=== PATIENT | female | born 1985 | race Caucasian/White ===

== ENCOUNTER 2017-01-08 19:47 | Emergency (ER) | payer BC, OTHER ==
[2017-01-08 20:57] VITALS: BP 140/73
[2017-01-08] MEDS ORDERED: Azithromycin TAB* 250 MG PO ONE (21:13)
[2017-01-08] MEDS ORDERED: Albuterol HFA INHALER* 8 gm MDI INH ONE (21:13)
--- NOTE | 2017-01-08 21:13 | UC ---
Respiratory Complaint HPI - HPI Summary HPI Summary: 2 days of cough and chills - History of Current Complaint Chief Complaint: UCRespiratory Stated Complaint: HEAD COLD,CHILLS AND BODY ACHES Time Seen by Provider: 01/08/17 20:52 Hx Obtained From: Patient Hx Last Menstrual Period: 12/24/16 ?: No Onset/Duration: Sudden Onset, Lasting Days - 2 Timing: Constant Severity Currently: Mild Pain Intensity: 3 Pain Scale Used: 0-10 Numeric Character: Cough: Nonproductive Associated Signs And Symptoms: Positive: Chills, URI - Allergies/Home Medications Allergies/Adverse Reactions: Allergies Allergy/AdvReac Type Severity Reaction Status Date / Time No Known Allergies Allergy Verified 01/08/17 20:57 PMH/Surg Hx/FS Hx/Imm Hx Previously Healthy: No Endocrine History Of: 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, HAS INSULIN PUMP Denies: Thyroid Disease, Hyperthyroidism, Hypothyroidism, Dyslipidemia Cardiovascular History Of: Denies: Cardiac Disorders, Hypertension, Pacemaker/ICD, Myocardial Infarction , Congestive Heart Failure, Atrial Fibrillation, Deep Vein Thrombosis, Bleeding Disorders Respiratory History Of: Reports: Asthma Denies: COPD, Bronchitis, Pneumonia, Pulmonary Embolism GI/ History Of: Denies: Gastroesophageal Reflux, Ulcer, Gastrointestinal Bleed, Gall Bladder Disease, Kidney Stones, Diverticulitis, Renal Disease, Urosepsis Neurological History Of: Denies: TIA, CVA, Dementia, Seizures, Migraine Psychological History Of: Denies: Anxiety, Depression, Bipolar Disorder, Schizophrenia, Post Traumatic Stress Disorder Cancer History Of: Denies: Lung Cancer, Colorectal Cancer, Breast Cancer, Prostate Cancer, Cervical Cancer Other History Of: Negative For: HIV, Hepatitis B, Hepatitis C, Anticoagulant Therapy - Surgical History Surgical History: None - Family History Known Family History: Positive: Diabetes Negative: Cardiac Disease, Hypertension, Renal Disease - Social History Occupation: Employed Full-time Lives: With Family Alcohol Use: Occasionally Substance Use Type: None Smoking Status (MU): Heavy Every Day Tobacco Smoker Type: Cigarettes Amount Used/How Often: 1 ppd Length of Time of Smoking/Using Tobacco: started at age 15 Have You Smoked in the Last Year: Yes Household Exposure Type: Cigarettes Cessation Counseling: Patient Advised to Stop - Immunization History Most Recent Influenza Vaccination: FALL 2013 Review of Systems Constitutional: Chills, Fatigue Skin: Negative Eyes: Negative ENT: Negative Respiratory: Cough Cardiovascular: Negative Gastrointestinal: Negative Genitourinary: Negative Motor: Negative Neurovascular: Negative Musculoskeletal: Negative Neurological: Negative Psychological: Negative All Other Systems Reviewed And Are Negative: Yes Physical Exam Triage Information Reviewed: Yes Appearance: Well-Appearing, No Pain Distress, Well-Nourished Vital Signs: Initial Vital Signs Temp 97.5 F 01/08/17 20:51 Pulse 100 01/08/17 20:51 Resp 16 01/08/17 20:51 BP 140/73 01/08/17 20:51 Pulse Ox 96 01/08/17 20:51 Vital Signs Reviewed: Yes Eye Exam: Normal Eyes: Positive: Conjunctiva Clear ENT Exam: Normal ENT: Positive: Normal ENT inspection, Hearing grossly normal, Pharynx normal. Negative: Nasal congestion, Nasal drainage, TMs normal, Tonsillar swelling, Tonsillar exudate, Trismus, Muffled/hoarse voice Dental Exam: Normal Neck exam: Normal Neck: Positive: Supple, Nontender, No Lymphadenopathy Respiratory Exam: Normal Respiratory: Positive: Chest non-tender, Lungs clear, Normal breath sounds, No respiratory distress, No accessory muscle use Cardiovascular Exam: Normal Cardiovascular: Positive: RRR, No Murmur, Pulses Normal, Brisk Capillary Refill Musculoskeletal Exam: Normal Musculoskeletal: Positive: Strength Intact, ROM Intact, No Edema Neurological Exam: Normal Neurological: Positive: Alert, Muscle Tone Normal Psychological Exam: Normal Skin Exam: Normal UC Diagnostic Evaluation - Laboratory O2 Sat by Pulse Oximetry: 96 Respiratory Course/Dx - Course Course Of Treatment: Albuterol with spacer, antibiodics if symptoms fail to improve or worsen, hypertension follow up and DASH diet suggested - Differential Dx/Diagnosis Differential Diagnosis/HQI/PQRI: Asthma, Bronchitis, Lower Resp Infection, Sinusitis Provider Diagnoses: Acute Bronchitis, Highblood pressure with out Dx of Hypertension,nicotine dependent Discharge - Discharge Plan Condition: Stable Disposition: HOME Prescriptions: Azithromycin TAB* [Zithromax TAB (Z-JOSE ANTONIO) 250 mg #6 tabs] 250 mg PO DAILY #4 tab Benzonatate CAP* [Tessalon 100 MG CAP*] 100 mg PO TID PRN #40 cap PRN Reason: cough Patient Education Materials: How to Stop Smoking (ED), Acute Bronchitis (ED), DASH Eating Plan (ED), Hypertension (ED), Bronchospasm (ED), How to Use a Metered-Dose Inhaler and a Spacer (ED) Referrals: [facility] [place]] - 2 Weeks No Primary Care Phys,NOPCP [Medical Doctor] -
== END 2017-01-08 21:31 | disposition home or self-care (01) ==
LOC: UCCORT 19:47
DX: J20.9 Acute bronchitis, unspecified (principal); R03.0 Elevated blood-pressure reading, without diagnosis of hypertension; E11.9 Type 2 diabetes mellitus without complications; Z96.41 Presence of insulin pump (external) (internal); J45.909 Unspecified asthma, uncomplicated; F17.210 Nicotine dependence, cigarettes, uncomplicated
CPT/HCPCS: 99212; A9270-GY; G0463

== ENCOUNTER 2017-12-02 09:41 | Emergency (ER) | payer SELFPAY ==
[2017-12-02 10:12] VITALS: BP 135/79
--- NOTE | 2017-12-30 17:08 | UC ---
Respiratory Complaint HPI - History of Current Complaint Chief Complaint: UCRespiratory Stated Complaint: COUGH Time Seen by Provider: 12/02/17 10:12 Hx Last Menstrual Period: 11/19/17 Pain Intensity: 0 - Allergies/Home Medications Allergies/Adverse Reactions: Allergies Allergy/AdvReac Type Severity Reaction Status Date / Time No Known Allergies Allergy Verified 12/02/17 10:06 Home Medications: Home Medications Acetaminophen TAB* [Tylenol TAB*] 325 mg PO Q4H PRN 12/02/17 [History Confirmed 12/02/17] Fluticasone NASAL SPRAY 50MCG* [Flonase NASAL SPRAY 50MCG*] 2 spray BOTH NARES DAILY 12/02/17 [History Confirmed 12/02/17] Ibuprofen TAB* [Motrin TAB* 600 MG] 600 mg PO Q6H PRN 12/02/17 [History Confirmed 12/02/17] Multivitamins/Minerals TAB* [Theragran/minerals TAB*] 1 tab PO DAILY 12/02/17 [ History Confirmed 12/02/17] PMH/Surg Hx/FS Hx/Imm Hx Other History Of: Negative For: HIV, Hepatitis B, Hepatitis C, Anticoagulant Therapy - Surgical History Surgical History: None Surgery Procedure, Year, and Place: ear tubes - Family History Known Family History: Positive: Diabetes Negative: Cardiac Disease, Hypertension, Renal Disease - Social History Alcohol Use: Occasionally Substance Use Type: None Smoking Status (MU): Heavy Every Day Tobacco Smoker Type: Cigarettes Amount Used/How Often: 1 ppd Length of Time of Smoking/Using Tobacco: started at age 15 Have You Smoked in the Last Year: Yes Household Exposure Type: Cigarettes - Immunization History Most Recent Influenza Vaccination: FALL 2013 Physical Exam Vital Signs: Initial Vital Signs Temp 98.1 F 12/02/17 09:59 Pulse 92 12/02/17 09:59 Resp 18 12/02/17 09:59 BP 135/79 12/02/17 09:59 Pulse Ox 98 12/02/17 09:59 UC Diagnostic Evaluation - Laboratory O2 Sat by Pulse Oximetry: 98 Discharge - Discharge Plan Condition: Stable Disposition: ELOPEMENT Referrals: Gus SAWANT,Constantino Morgan [Primary Care Provider] - - Billing Disposition and Condition Condition: STABLE Disposition: ELOP
== END 2017-12-02 10:28 | disposition left against medical advice (07) ==
LOC: UCCORT 09:41
DX: R05 Cough (principal)
CPT/HCPCS: 99212; G0463

== ENCOUNTER 2018-12-07 18:41 | Emergency (ER) | payer BC ==
[2018-12-07 19:15] VITALS: BP 114/66
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
[2018-12-07] MEDS ORDERED: Naproxen TAB* 250 MG PO ONE (20:40)
== END 2018-12-07 20:45 | disposition home or self-care (01) ==
LOC: UCCORT 18:41
DX: S20.212A Contusion of left front wall of thorax, initial encounter (principal); F17.210 Nicotine dependence, cigarettes, uncomplicated; Y04.0XXA Assault by unarmed brawl or fight, initial encounter; Y92.9 Unspecified place or not applicable
CPT/HCPCS: 99212; A9270-GY; G0463

== ENCOUNTER 2019-06-07 10:55 | Emergency (ER) | payer BC ==
--- OUTSIDE RECORDS SUMMARY | 2019-06-07 11:14 | XMS REPORT | Summary of Care ---
:1985 Author Organization [facility] Address [address] [place] [address] Care Team Providers Name Role Phone Constantino Weber MD Unavailable Julisa Martinez MD Primary Care Provider Reason for Visit Reason Comments Check Up Encounter Details Date Type Department Care Team Description 05/19/2019 Office Visit [facility] Juan, Attention deficit disorder (ADD) without hyperactivity (Primary Dx); Practice Julisa Blanca MD TASHA (generalized anxiety disorder); [address] Type 1 diabetes mellitus with hyperglycemia, with long-term current use of insulin ([facility]) [place], [place] [id number] [place] [id number] [phone] Allergies Active Allergy Reactions Severity Noted Date Comments No Known Drug Allergy 04/24/2008 documented as of this encounter (statuses as of 05/19/2019) Medications Medication Sig Dispensed Refills Start Date End Date Status Insulin Aspart, RAPID Inject 2 Units 3 Vial 5 08/19/2010 Active - Acting, INJ (INSULIN beneath the skin ASPART) 100 UNIT/ML FOUR TIMES DAILY - Subcutaneous BEFORE MEALS & SolutionIndications: NIGHTLY. Given via Diabetes mellitus type pump as directed I ([facility]) by Dr. Hirsch Additional information Patient taking differently: 2 Units Subcutaneous DIRECTED, Given via pump as directed by Mary snyder, Reported on 04/17/2018 6:32 PM Blood Glucose 1. Brand: One Touch Ultra 150 Strip 5 11/02/2010 Active Monitoring Suppl (BLOOD 2. Dx: Diabetes GLUCOSE TEST STRIPS 3. Insulin dependent STRP)Indications: 4. Test Blood Glucose 8 time(s) A DAY Diabetes mellitus type I (HCC) ibuprofen (MOTRIN) 600 Take 1 Tab by 90 Tab 1 05/11/2017 Active MG Oral TabIndications: mouth EVERY Pain in joint of left EIGHT HOURS shoulder NEEDED for Pain. Multiple Take 2 Each by 0 Active Vitamins-Minerals mouth DAILY. (MULTIVITAMIN GUMMIES WOMENS PO) fluticasone (FLONASE) [place] 2 Sprays 0 Active 50 MCG/ACT Nasal in nose DAILY. Suspension Melatonin 3 MG Oral Cap Take by mouth 0 Active EVERY BEDTIME. Loratadine 10 MG Oral Take 10 mg by 90 Cap 3 04/17/2018 Active CapIndications: mouth DAILY Seasonal allergic NEEDED rhinitis due to pollen (allergy). Cholecalciferol Take 1 Cap by 90 Cap 3 07/24/2018 Active (VITAMIN D3) 2000 units mouth DAILY. Oral CapIndications: Vitamin D deficiency cyanocobalamin 500 MCG Take 500 mcg by 0 Active Oral Tab mouth DAILY. Takes 2 Norethindrone, Take 1 Tab by 28 Tab 11 03/13/2019 Active Contraceptive, 0.35 MG mouth DAILY. Oral TabIndications: General counselling and advice on contraception Methylphenidate HCl ER Take 36 mg by 30 Tab 0 05/12/2019 Active 36 MG Oral TABLET SR 24 mouth EVERY HRIndications: MORNING. Max Attention deficit Daily Amount: disorder (ADD) without 36 mg. hyperactivity sertraline (ZOLOFT) 50 Take 1.5 Tabs 45 Tab 5 05/19/2019 Active MG Oral TabIndications: by mouth DAILY. TASHA (generalized anxiety disorder) sertraline (ZOLOFT) 50 Take 1 Tab by 30 Tab 3 04/15/201905/19/ Discontinued MG Oral TabIndications: mouth DAILY. 2019 (Dose Adjustment) TASHA (generalized 1/2 tab daily x anxiety disorder) 1 week, then go up to a full tablet daily sertraline (ZOLOFT) 50 Take 1.5 Tabs 30 Tab 5 05/19/201905/19/ Discontinued MG Oral TabIndications: by mouth DAILY. 2019 (Reorder) TASHA (generalized 1/2 tab daily x anxiety disorder) 1 week, then go up to a full tablet daily documented as of this encounter (statuses as of 05/19/2019) Active Problems Problem Noted Date Type 1 diabetes mellitus with hyperglycemia, with long-term current use of insulin Attention deficit disorder (ADD) without hyperactivity 02/04/2019 Diabetes mellitus type I 04/24/2008 Overview: Followed by Dr. Hirsch. 08/23 changed to [facility] for care. Personal history of tobacco use, presenting hazards to health 04/24/2008 documented as of this encounter (statuses as of 05/19/2019) Immunizations Name Administration Dates Next Due H1N1 Injectable Adult 06/08/2009 Human Papillomavirus 07/06/2008, 04/29/2008 Influenza (IM) Preservative Free 06/18/2018, 04/13/2018, 05/24/2010, 05/09/2009 TDAP Vaccine 03/13/2019, 10/25/2012 Tuberculin Skin Test 12/24/2017 documented as of this encounter Social History Tobacco Use Types Packs/Day Years Used Date Current Every Day Smoker Cigarettes 1 9 Smokeless Tobacco: Never Used Alcohol Use Drinks/Week oz/Week Comments Yes occasionally Sex Assigned at Date Recorded Not on file Job Start Date Occupation Industry Not on file Not on file Not on file Travel History Travel Start Travel End No recent travel history available. documented as of this encounter Last Filed Vital Signs Vital Sign Reading Time Taken Comments Blood Pressure 120/70 05/19/2019 1:07 PM EDT Pulse 87 05/19/2019 1:07 PM EDT Temperature - - Respiratory Rate - - Oxygen Saturation 98% 05/19/2019 1:07 PM EDT Inhaled Oxygen Concentration - - Weight 59 kg (130 lb) 05/19/2019 1:07 PM EDT Height 153.7 cm (5' 0.5") 05/19/2019 1:07 PM EDT Body Mass Index 24.97 05/19/2019 1:07 PM EDT documented in this encounter Patient Instructions Patient InstructionsJulisa Martinez MD - 05/19/2019 1:00 PM EDTGlad you are feeling better. Increase your sertraline to 75 mg (1.5 tabs) daily. Continue your current methylphenidate dose. Call when you need a methylphenidate refill. documented in this encounter Progress Notes Julisa Martinez MD - 05/19/2019 1:00 PM EDT Nursing Notes: Greer Rosas LPN 05/19/2019 1:14 PM Signed Chief Complaint Patient presents with Check Up Chief Complaint: Nisa Moore is a 33-y.o. female who presents for anxiety and ADD recheck. History of Present Illness/ROS: Here for follow up of anxiety, ADD. Plan last visit: patient has generalized anxiety. We spent a long time discussing treatment options last visit. She agreed to try an SSRI, has beenon sertraline in the past. Risk, benefits, side effects discussed. Continue Concerta for ADD but can take drug holiday days. ADD/Anxiety: She is very happy with her sertraline that we started last visit. Has nausea if she takes it without eating. She takes it at night. She thinks it could go Higher Side effects: nausea and headache initially. She wonders if she needs a higher dose of methylphenidate, but wants to wait as she gets used to sertraline. Her prior Adderall was too much,felt poorly on it.. Insurance did not allow Vyvanse. She took ritalin as a teen, wanted to try this or similar last visit. We opted to try Concerta in December. She thinks it helps, but still moves too much, fidgets. Still has low motivation. She still feels no significant changes on her Concerta. 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 She is still very anxious. She is not sure it is from Concerta. She is sleeping at night. She has a lot of ruminating thoughts. She dreads being on more medications, but is willing to try for a while. She and her ex-boyfriend tried again but he left again at the end of February. Says she had ADD as a child. Was on Wellbutrin XL, zoloft, adderall, ritalin as a child. No adverse reactions in past. Feels overwhelmed x Weeks. Patient complains of depressed mood, psychomotor agitation and feels overwhelmed. She tried therapy, [facility]. She will not be able to see a psychiatrist for a while and copay is $60. 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 She says she has no time for therapy otherwise. Her adopted mom is in her life again so she can talk to her sometimes. Patient denies current suicidal and homicidal plan or intent. Family history significant for unknown, raised in foster care; suspects mother has issues. Possible organic causes contributing are: none. Risk factors: previous episode of depression, had a break up 08/23/18 and it "broke her heart". Previous treatment : As above Patient complains of the following side effects from the treatment: none. Smoking: She stopped cig. And now vapes, nicotene is 5 mg. Warned of dangers of both. Diabetic: followed at [facility] A1C 03/11/19 was 7.7 They checked her thyroid last visit. Has next appointment in June Per last visits: Options for treating depression and anxiety discussed. I agreed with her starting therapy with goal to eventually see the psychiatrist. I started her on Lexapro, however; After two doses of Lexapro she became more anxious so stopped and threw out the Lexapro. She went to [facility] for counseling. Review of Systems - General ROS: negative for - chills, fever or weight loss Psychological ROS: positive for - anxiety and concentration difficulties negative for - depression or suicidal ideation Respiratory ROS: no cough, shortness of breath Cardiovascular ROS: no chest pain or dyspnea on exertion, denies palpitations Gastrointestinal ROS: no abdominal pain, change in bowel habits positive for - occasional sharp pelvic cramp, which she associates with constipation. negative for - vaginal discharge Results for NISA MOORE ( ) as of 04/15/2019 15:54 Ref. Range 09/18/2018 00:00 10/20/2018 00:00 12/16/2018 00:00 02/04/2019 14:35 2018 00:00 Glyco A1c (External) Unknown 7.8 7.8 7.7 Microalbumin Ratio Unknown Low Malb or CRE TSH 1.510, Free T4 0.99 on 03/11/19 Past Medical History: Diagnosis Date Diabetes mellitus type I (HCC) 04/24/2008 Followed by arvi Hernandez age 3, insulin pump Personal history of tobacco use, presenting hazards to health 04/24/2008 Past Surgical History: Procedure Laterality Date MYRINGOTOMY Current Outpatient Medications: Blood Glucose Monitoring Suppl (BLOOD GLUCOSE TEST STRIPS STRP), 1. Brand: One Touch Ultra 2. Dx: Diabetes 3. Insulin dependent 4. Test Blood Glucose 8 time(s) A DAY, Disp: 150 Strip, Rfl: 5 Cholecalciferol (VITAMIN D3) 2000 units Oral Cap, Take 1 Cap by mouth DAILY., Disp: 90 Cap, Rfl: 3 cyanocobalamin 500 MCG Oral Tab, Take 500 mcg by mouth DAILY. Takes 2, Disp: , Rfl: fluticasone (FLONASE) 50 MCG/ACT Nasal Suspension, P[place] 2 Sprays in nose DAILY., Disp: , Rfl: ibuprofen (MOTRIN) 600 MG Oral Tab, Take 1 Tab by mouth EVERY EIGHT HOURS NEEDED for Pain., Disp: 90 Tab, Rfl: 1 Insulin Aspart, RAPID - Acting, INJ (INSULIN ASPART) 100 UNIT/ML Subcutaneous Solution, Inject 2 Units beneath the skin FOUR TIMES DAILY - BEFORE MEALS & NIGHTLY. Given via pump as directedby Dr. Hirsch (Patient taking differently: Inject 2 Units beneath the skin DIRECTED. Given via pump as directed by Mary snyder), Disp: 3 Vial, Rfl: 5 Loratadine 10 MG Oral Cap, Take 10 mg by mouth DAILY NEEDED (allergy) ., Disp: 90 Cap, Rfl: 3 Melatonin 3 MG Oral Cap, Take by mouth EVERY BEDTIME., Disp: , Rfl: Methylphenidate HCl ER 36 MG Oral TABLET SR 24 HR, Take 36 mg by mouth EVERY MORNING. Max Daily Amount: 36 mg., Disp: 30 Tab, Rfl: 0 Multiple Vitamins-Minerals (MULTIVITAMIN GUMMIES WOMENS PO), Take 2 Each by mouth DAILY., Disp: , Rfl: Norethindrone, Contraceptive, 0.35 MG Oral Tab, Take 1 Tab by mouth DAILY., Disp: 28 Tab, Rfl: 11 sertraline (ZOLOFT) 50 MG Oral Tab, Take 1.5 Tabs by mouth DAILY., Disp : 45 Tab, Rfl: 5 Allergies Allergen Reactions No Known Drug Allergy Social History Socioeconomic History Marital status: Single Spouse name: Not on file Number of children: Not on file Years of education: Not on file Highest education level: Not on file Occupational History Not on file Social Needs Financial resource strain: Not on file Food insecurity: Worry: Not on file Inability: Not on file Transportation needs: Medical: Not on file Non-medical: Not on file Tobacco Use Smoking status: Current Every Day Smoker Packs/day: 1.00 Years: 9.00 Pack years: 9.00 Types: Cigarettes Smokeless tobacco: Never Used Substance and Sexual Activity Alcohol use: Yes Comment: occasionally Drug use: No Sexual activity: Yes Partners: Male control/protection: I.U.D. Lifestyle Physical activity: Days per week: Not on file Minutes per session: Not on file Stress: Not on file Relationships Social connections: Talks on phone: Not on file Gets together: Not on file Attends sikh service: Not on file Active member of club or organization: Not on file Attends meetings of clubs or organizations: Not on file Relationship status: Not on file Intimate partner violence: Fear of current or ex partner: Not on file Emotionally abused: Not on file Physically abused: Not on file Forced sexual activity: Not on file Other Topics Concern Back Care Not Asked Bike Helmet Not Asked Blood Transfusions Not Asked Caffeine Concern Yes Comment: soda every day Exercise Not Asked Hobby Hazards Not Asked International Travel Not Asked Service Not Asked Occupational Exposure Not Asked Seat Belt Not Asked Self-Exams Not Asked Sleep Concern Not Asked Special Diet Not Asked Stress Concern Not Asked Weight Concern Not Asked Social History 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 not close to mom Allergies Father Diabetes Maternal Grandmother PHYSICAL EXAMINATION: BP 120/70 (BP Location: Right arm, Patient Position: Sitting) | Pulse 87 | Ht 5' 0.5" (1.537 m) |Wt 130 lb (59 kg) | SpO2 98% | ? No | BMI 24.97 kg/m Physical Examination: General appearance - alert, well appearing, and in no distress Mental status - alert, oriented to person, place, and time, normal mood, behavior, speech, dress, motor activity, and thought processes Eyes - pupils equal , sclera anicteric Neck - supple, no cervical or supraclavicular adenopathy, carotids upstroke normal bilaterally, no bruits, thyroid exam: thyroid is normal in size without nodules or tenderness, no neck masses palpated. Chest/Lungs - clear to auscultation, no wheezes, rales or rhonchi, symmetric air entry, good aeration Heart - normal rate, regular rhythm, normal S1, S2, no murmurs, rubs, clicks or gallops Abdomen: Soft, not distended, not tender, BSNA, no masses, no HSM Neurological - alert, oriented, normal speech, no gross focal findings or movement disorder noted Extremities - dorsalis pedis pulses normal, no pedal edema, no clubbing or cyanosis ASSESSMENT/PLAN: ICD-9-CM ICD-10-CM 1. Attention deficit disorder (ADD) without hyperactivity 314.00 F98.8 2. TASHA (generalized anxiety disorder) 300.02 F41.1 sertraline (ZOLOFT) 50 MG Oral Tab DISCONTINUED: sertraline (ZOLOFT) 50 MG Oral Tab 3. Type 1 diabetes mellitus with hyperglycemia, with long-term current use of insulin (HCC) 250.01 E10.65 790.29 Patient Instructions Glad you are feeling better. Increase your sertraline to 75 mg (1.5 tabs) daily. Continue your current methylphenidate dose. Call when you need a methylphenidate refill. Follow up 3 months, sooner pr Author: Julisa Martinez MD 05/19/2019 13:30 documented in this encounter Plan of Treatment Date Type Specialty Care Team Description 08/19/2019 Office Visit Family Practice Julisa Martinez MD [address] [place] [address] [phone] Health Maintenance Due Date Last Done Comments Diabetic Eye Exam 1985 PNEUMOCOCCAL 0-64 YRS (1 of 1990 1 - PPSV23) HPV IMMUNIZATION SERIES (3 - 10/27/2008 07/06/2008, 04/29/2008 Female 3-dose series) INFLUENZA VACCINE (#1) 2019 06/18/2018, 04/13/2018, 05/24/2010, Additional history exists FOOT EXAM 04/17/2019 04/17/2018, 04/17/2018, 04/17/2018, Additional history exists HEMOGLOBIN A1C 06/11/2019 03/11/2019, 12/16/2018, 09/18/2018, Additional history exists DEPRESSION SCREENING 09/03/2019 09/03/2018, 09/03/2018 URINE MICROALBUMIN 02/05/2020 02/04/2019, 03/18/2018, 02/19/2017, Additional history exists PAP SMEAR 05/11/2020 05/11/2017, 10/26/2014, 08/08/2012, Additional history exists MENINGOCOCCAL VACCINE IMM Aged Out No longer eligible based on patient's age to complete this topic documented as of this encounter Goals Goal Patient Goal Associated Recent Patient-Stated? Author Type Problems Progress Depression Depression 20 No Juan screen (PHQ-9) (09/03/2018 Julisa Blanca, total score < 5 9:11 AM EST) Note: This is an individualized treatment (depression) goal for Nisa Moore: Displayed above is your goal for a depression screening (PHQ-9) score that would indicate good control of your depression. Glycohemoglobin A1c < 7.0 Diabetes No Wayne Del Angel DO Note: This is an individualized treatment (diabetes control, HgbA1C) goal for Nisa Moore: Displayed above is your progress towards your HgbA1C goal. Your goal is shown above (on the left); your most recent HgbA1C is shown on the right. Note that lower numbers are better. Keep immunizations current Lifestyle No Wayne Del Angel DO Note: This is an individualized lifestyle goal for Nisa Moore: Please be sure to keep up-to-date on recommended immunizations. For example, this would include a yearly influenza vaccine. Immunization status can be seen by looking at the Health Maintenance sections of your [facility], Plan of Care, and any After Visit Summaries. Keep a regular sleep schedule Lifestyle No Julisa Martinez MD Note: This is an individualized lifestyle goal for Nisa Moore: Please maintain a regular sleep schedule. This may help with some symptoms of depression. Take all prescribed medications as directed Self-management No Wayne Del Angel DO Note: This is an individualized self-management goal for Nisa Moore: Please take all prescribed medications as directed. 1. Do not skip doses. If you cannot afford your medications, talk with your doctor. 2. Use a pill reminder system such as a pill box if needed. Your pharmacist can help you with this. 3. Contact your Pharmacy 5 days before your medication runs out. If you cannot take your medications for any reasons, talk with your doctor. 4. Please bring all of your medication bottles and inhalers (or a list of all your medications/inhalers) with you to every visit. Potential barriers to meeting all of your care plan goals will continue to be addressed on an ongoing basis. documented as of this encounter Results Not on filedocumented in this encounter Visit Diagnoses Diagnosis Attention deficit disorder (ADD) without hyperactivity - Primary TASHA (generalized anxiety disorder) Generalized anxiety disorder Type 1 diabetes mellitus with hyperglycemia, with long-term current use of insulin (HCC) documented in this encounter Insurance Payer Benefit Plan / Subscriber ID Effective Dates Phone Address Type Group [employer] xxxxxxxxxxxx 2017-Present [employer] (Home) [address], [place] (Work) [phone] documented as of this encounter
--- OUTSIDE RECORDS SUMMARY | 2019-06-07 11:14 | XMS REPORT | Summary of Care ---
:1985 Author Organization [facility] Address [address] [address] Care Team Providers Name Role Phone Constantino Weber MD Unavailable Julisa Martinez MD Primary Care Provider Reason for Visit Reason Comments Check Up Encounter Details Date Type Department Care Team Description 04/15/2019 Office Visit [facility] Juan Attention deficit disorder (ADD) without hyperactivity (Primary Dx); Practice Julisa Blanca MD TASHA (generalized anxiety disorder) [address] [facility] [address] [place] [id number] [place] [address] [phone] Allergies Active Allergy Reactions Severity Noted Date Comments No Known Drug Allergy 04/24/2008 documented as of this encounter (statuses as of 04/15/2019) Medications Medication Sig Dispensed Refills Start Date End Date Status Insulin Aspart, RAPID Inject 2 Units 3 Vial 5 08/19/2010 Active - Acting, INJ (INSULIN beneath the skin ASPART) 100 UNIT/ML FOUR TIMES DAILY - Subcutaneous BEFORE MEALS & SolutionIndications: NIGHTLY. Given via Diabetes mellitus type pump as directed I ([facility]) by Dr. Hirsch Additional information Patient taking differently: 2 Units Subcutaneous DIRECTED, Given via pump as directed by Mary snyder, Reported on 04/17/2018 6:32 PM Blood Glucose 1. Brand: One Touch Ultra 150 Strip 5 11/02/2010 Active Monitoring Suppl 2. Dx: Diabetes (BLOOD GLUCOSE TEST 3. Insulin dependent STRIPS 4. Test Blood Glucose 8 time(s) A DAY STRP)Indications: Diabetes mellitus type I (HCC) ibuprofen (MOTRIN) 600 Take 1 Tab by 90 Tab 1 05/11/2017 Active MG Oral mouth EVERY EIGHT TabIndications: Pain HOURS NEEDED in joint of left for Pain. shoulder Multiple Take 2 Each by 0 Active Vitamins-Minerals mouth DAILY. (MULTIVITAMIN GUMMIES WOMENS PO) fluticasone (FLONASE) Banner 2 Sprays in 0 Active 50 MCG/ACT Nasal nose DAILY. Suspension Melatonin 3 MG Oral Take by mouth 0 Active Cap EVERY BEDTIME. Loratadine 10 MG Oral Take 10 mg by 90 Cap 3 04/17/2018 Active CapIndications: mouth DAILY Seasonal allergic NEEDED (allergy). rhinitis due to pollen Cholecalciferol Take 1 Cap by 90 Cap 3 07/24/2018 Active (VITAMIN D3) 2000 mouth DAILY. units Oral CapIndications: Vitamin D deficiency cyanocobalamin 500 MCG Take 500 mcg by 0 Active Oral Tab mouth DAILY. Takes 2 Norethindrone, Take 1 Tab by 28 Tab 11 03/13/2019 Active Contraceptive, 0.35 MG mouth DAILY. Oral TabIndications: General counselling and advice on contraception Methylphenidate HCl ER Take 36 mg by 30 Tab 0 04/09/2019 Active 36 MG Oral TABLET SR mouth EVERY 24 HRIndications: MORNING. Max Attention deficit Daily Amount: 36 disorder (ADD) without mg. hyperactivity sertraline (ZOLOFT) 50 Take 1 Tab by 30 Tab 3 04/15/2019 Active MG Oral mouth DAILY. 1/2 TabIndications: TASHA tab daily x 1 (generalized anxiety week, then go up disorder) to a full tablet daily Levonorgestrel by Intrauterine 0 04/15 Discontinued (LILETTA, 52 MG,) 19.5 route. (Therapy MCG/DAY Intrauterine Completed) IUD documented as of this encounter (statuses as of 04/15/2019) Active Problems Problem Noted Date Type 1 diabetes mellitus with hyperglycemia, with long-term current use of insulin Attention deficit disorder (ADD) without hyperactivity 02/04/2019 Diabetes mellitus type I 04/24/2008 Overview: Followed by Dr. Hirsch. 08/23 changed to [facility] for care. Personal history of tobacco use, presenting hazards to health 04/24/2008 documented as of this encounter (statuses as of 04/15/2019) Immunizations Name Administration Dates Next Due H1N1 Injectable Adult 06/08/2009 Human Papillomavirus 07/06/2008, 04/29/2008 Influenza (IM) Preservative Free 06/18/2018, 04/13/2018, 05/24/2010, 05/09/2009 TDAP Vaccine 03/13/2019, 10/25/2012 Tuberculin Skin Test 12/24/2017 documented as of this encounter Social History Tobacco Use Types Packs/Day Years Used Date Current Every Day Smoker Cigarettes 1 9 Smokeless Tobacco: Never Used Tobacco Cessation: Ready to Quit: No Alcohol Use Drinks/Week oz/Week Comments Yes occasionally Sex Assigned at Date Recorded Not on file Job Start Date Occupation Industry Not on file Not on file Not on file Travel History Travel Start Travel End No recent travel history available. documented as of this encounter Last Filed Vital Signs Vital Sign Reading Time Taken Comments Blood Pressure 110/60 04/15/2019 3:39 PM EDT Pulse 87 04/15/2019 3:39 PM EDT Temperature - - Respiratory Rate - - Oxygen Saturation 98% 04/15/2019 3:39 PM EDT Inhaled Oxygen Concentration - - Weight 59 kg (130 lb) 04/15/2019 3:39 PM EDT Height 153.7 cm (5' 0.5") 04/15/2019 3:39 PM EDT Body Mass Index 24.97 04/15/2019 3:39 PM EDT documented in this encounter Patient Instructions Patient InstructionsJulisa Martinez MD - 04/15/2019 3:40 PM EDTTry sertraline (zoloft) for anxiety. Take it daily: 1/2 tab for the first week, then go up to a full tablet daily. It can cause nausea and headaches initially. You can Concerta but can also take a day or two off from it. If you feel worse, more depressed, more anxious on Sertraline, then stop it and let me know. If you feel more agitated, cannot sleep, any bhavin symptoms, stop this med and let me know. If suicidal or homicidal go right to the ER /seek help right away. Sertraline (By mouth) Sertraline ([facility]-occ-royp) Treats depression, obsessive-compulsive disorder (OCD), posttraumatic stress disorder (PTSD), premenstrual dysphoric disorder (PMDD), social anxiety disorder , and panic disorder. This medicine is an SSRI. Brand Name(s):Zoloft There may be other brand names for this medicine. When This Medicine Should Not Be Used: This medicine is not right for everyone. Do not use it if you had an allergic reaction to sertraline. How to Use This Medicine: Liquid, Tablet Take your medicine as directed. Your dose may need to be changed several times to find what works best for you. You may need to take it for a few weeks or months before you feel better. Oral liquid: Use the dropper provided to remove the medicine and mix it with 1/2 cup (4 ounces)of water, clif allyson, lemon-lovelock soda, lemonade, or orange juice. Drink the mixture right away. It is normal for it to look a bit hazy. This medicine should come with a Medication Guide. Ask your pharmacist for a copy if you do nothave one. Missed dose: Take a dose as soon as you remember. If it is almost time for your next dose, waituntil then and take a regular dose. Do not take extra medicine to make up for a missed dose. Store the medicine in a closed container at room temperature, away from heat, moisture, and direct light. Drugs and Foods to Avoid: Ask your doctor or pharmacist before using any other medicine, including over- the-counter medicines,vitamins, and herbal products. Do not use this medicine together with pimozide. Do not use this medicine and an MAO inhibitor (MAOI) within 14 days of each other. Do not use the oral liquid form of sertraline if you are also using disulfiram. Some medicines can affect how sertraline works. Tell your doctor if you are using the following: Buspirone, cimetidine, cisapride, diazepam, digitoxin, fentanyl, flecainide , lithium, phenytoin, propafenone, Josiane's wort, tramadol, tryptophan supplements, or valproate A blood thinner (such as warfarin), a diuretic (water pill), an NSAID pain or arthritis medicine (such as aspirin, diclofenac, ibuprofen), a tricyclic antidepressant, a triptan medicine for migraine headaches Do not drink alcohol while you are using this medicine. Warnings While Using This Medicine: Tell your doctor if you are or , or if you have liver disease, bleeding problems, glaucoma, heart disease, or a seizure disorder. For some children, teenagers, and young adults, this medicine may increase mental or emotional problems. This may lead to thoughts of suicide and violence. Talk with your doctor right away if you have any thoughts or behavior changes that concern you. Tell your doctor if you or anyone in your family has a history of bipolar disorder or suicide attempts. This medicine may cause the following problems: Serotonin syndrome (when taken with certain medicines) Low sodium levels (more common in elderly patients and those who take diuretics or become dehydrated) Tell your doctor if you are sensitive to latex, because the oral liquid comes with a latex rubber dropper. This medicine may make you dizzy or drowsy. Do not drive or do anything that could be dangerousuntil you know how this medicine affects you. Do not stop using this medicine suddenly. Your doctor will need to slowly decrease your dose before you stop it completely. Your doctor will check your progress and the effects of this medicine at regular visits. Keep all appointments. Keep all medicine out of the reach of children. Never share your medicine with anyone. Possible Side Effects While Using This Medicine: Call your doctor right away if you notice any of these side effects: Allergic reaction: Itching or hives, swelling in your face or hands, swelling or tingling in your mouth or throat, chest tightness, trouble breathing Anxiety, restlessness, fast heartbeat, fever, sweating, muscle spasms, twitching, nausea, vomiting, diarrhea, seeing or hearing things that are not there Blistering, peeling, or red skin rash Confusion, weakness, and muscle twitching Eye pain, vision changes, seeing halos around lights Feeling more excited or energetic than usual Thoughts of hurting yourself or others, unusual behavior Unusual bleeding or bruising If you notice these less serious side effects, talk with your doctor: Dry mouth Loss of appetite, weight loss Mild diarrhea, constipation, nausea, vomiting Sexual problems Sleepiness, or trouble sleeping If you notice other side effects that you think are caused by this medicine, tell your doctor. Call your doctor for medical advice about side effects. You may report side effects to FDA at 3-986-LOB-1778 2016 [employer] Information is for End User's use only and may not be sold, redistributed or otherwise used for commercial purposes. The above information is an dietary aide only. It is not intended as medical advice for individual conditions or treatments. Talk to your doctor, nurse or pharmacist before following any medical regimen to see if it is safe and effective for you. documented in this encounter Progress Notes Julisa Martinez MD - 04/15/2019 3:40 PM EDT Chief Complaint: Nisa Moore is a 33-y.o. female who presents for anxiety and ADD recheck. History of Present Illness/ROS: Here for follow up of anxiety, ADD. I removed her IUD last visit at her request. She is now on a progesterone only contraceptive pill. Had 2 menses last month ADD/Anxiety: Her prior Adderall was too much,felt poorly [...] She is not sure it is from Arden Reeda. She is sleeping at night. She has [...] agitation and feels overwhelmed. She tried therapy, [facility]. She will not be able to see a psychiatrist for a while and copay is $60. She now sees her regulatory affairs strategy specialist for counseling. She says she has no [...] of dangers of both. Diabetic: followed at [facility] A1C 03/11/19 was 7.7 They checked her thyroid last visit. Per last visits: Options for treating depression and anxiety discussed. I agreed with her starting therapy with goal to eventually see the psychiatrist. I started her on Lexapro, however; After two doses of Lexapro she became more anxious so stopped and threw out the Lexapro. She went to [facility] for counseling. Review of Systems - General [...] mellitus type I (HCC) 04/24/2008 Followed by ravi Hernandez age 3, insulin pump Personal history [...] Rfl: fluticasone (FLONASE) 50 MCG/ACT Nasal Suspension, Banner 2 Sprays in nose DAILY., Disp: , [...] sertraline (ZOLOFT) 50 MG Oral Tab, Take 1 Tab by mouth DAILY. 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 not close to mom Allergies Father Diabetes Maternal Grandmother PHYSICAL EXAMINATION: BP 110/60 (BP Location: Right arm, Patient Position: Sitting) | Pulse 87 | Ht 5' 0.5" (1.537 m) |Wt 130 lb (59 kg) | LMP 03/25/2019 (LMP Unknown) | SpO2 98 % | ? No | BMI 24.97 kg/m Physical Examination: General appearance - alert, well appearing, and in no distress Mental status - alert, oriented to person, place, and time, normal mood, behavior, speech, dress, motor activity, and thought processes Eyes - pupils equal and reactive, extraocular eye movements intact, sclera anicteric Neck - supple, no cervical [...] no pedal edema, no clubbing or cyanosis TASHA-7 Screening Over the last 2 weeks, how often have you felt nervous, anxious or on edge?: Nearly every day Over the last 2 weeks, how often have you not been able to stop or control worrying?: Nearly every day Over the last 2 weeks, how often have you worried too much about different things?: Nearly every day Over the last 2 weeks, how often have you had trouble relaxing?: Nearly every day Over the last 2 weeks, how often have you been so restless you couldn't sit still?: Over half the days Over the last 2 weeks, how often have you become easily annoyed or irritable: Over half the days Over the last 2 weeks, how often have you felt afraid as if something awful might happen?: Nearly every day TASHA-7 Total Score: 19 How difficult have these problems made it for you to do your work, take care of things at home, or get along with other people?: Very difficult ASSESSMENT/PLAN: ICD-9-CM ICD-10-CM 1. Attention deficit disorder (ADD) without hyperactivity 314.00 F98.8 2. TASHA (generalized anxiety disorder) 300.02 F41.1 sertraline (ZOLOFT) 50 MG Oral Tab patient has generalized anxiety. We spent a long time discussing treatment options. She agrees to try an SSRI, has beenon sertraline in the past. Risk, benefits, side effects discussed. Continue Concerta for ADD but can take drug holiday days. DIET AND EXERCISE: Exercise is recommended 150 minutes weekly: 30 minutes five days a week of moderate exercise such as walking. In addition is it recommended you have two days weekly of working all your major muscle groups (arms, legs) such as with weight lifting or other exercise. I recommend a well balanced healthy diet, portion control, drink plenty of fluids. The Mediterranean diet is an excellent diet. Be sure to get adequate sleep at night, 8 hours. Patient Instructions Try sertraline (zoloft) for anxiety. Take it daily: 1/2 tab for the first week, then go up to a full tablet daily. It can cause nausea and headaches initially. You can Concerta but can also take a day or two off from it. If you feel worse, more depressed, more anxious on Sertraline, then stop it and let me know. If you feel more agitated, cannot sleep, any bhavin symptoms, stop this med and let me know. If suicidal or homicidal go right to the ER /seek help right away. Sertraline (By mouth) Sertraline ([id number]) Treats depression, obsessive-compulsive disorder (OCD), posttraumatic stress disorder (PTSD), premenstrual dysphoric disorder (PMDD), social anxiety disorder , and panic disorder. This medicine is an SSRI. Brand Name(s):Zoloft There may be other brand names for this medicine. When This Medicine Should Not Be Used: This medicine is not right for everyone. Do not use it if you had an allergic reaction to sertraline. How to Use This Medicine: Liquid, Tablet Take your medicine as directed. Your dose may need to be changed several times to find what works best for you. You may need to take it for a few weeks or months before you feel better. Oral liquid: Use the dropper provided to remove the medicine and mix it with 1/2 cup (4 ounces)of water, clif allyson, lemon-lovelock soda, lemonade, or orange juice. Drink the mixture right away. It is normal for it to look a bit hazy. This medicine should come with a Medication Guide. Ask your pharmacist for a copy if you do nothave one. Missed dose: Take a dose as soon as you remember. If it is almost time for your next dose, waituntil then and take a regular dose. Do not take extra medicine to make up for a missed dose. Store the medicine in a closed container at room temperature, away from heat, moisture, and direct light. Drugs and Foods to Avoid: Ask your doctor or pharmacist before using any other medicine, including over- the-counter medicines,vitamins, and herbal products. Do not use this medicine together with pimozide. Do not use this medicine and an MAO inhibitor (MAOI) within 14 days of each other. Do not use the oral liquid form of sertraline if you are also using disulfiram. Some medicines can affect how sertraline works. Tell your doctor if you are using the following: Buspirone, cimetidine, cisapride, diazepam, digitoxin, fentanyl, flecainide , lithium, phenytoin, propafenone, Josiane's wort, tramadol, tryptophan supplements, or valproate A blood thinner (such as warfarin), a diuretic (water pill), an NSAID pain or arthritis medicine (such as aspirin, diclofenac, ibuprofen), a tricyclic antidepressant, a triptan medicine for migraine headaches Do not drink alcohol while you are using this medicine. Warnings While Using This Medicine: Tell your doctor if you are or , or if you have liver disease, bleeding problems, glaucoma, heart disease, or a seizure disorder. For some children, teenagers, and young adults, this medicine may increase mental or emotional problems. This may lead to thoughts of suicide and violence. Talk with your doctor right away if you have any thoughts or behavior changes that concern you. Tell your doctor if you or anyone in your family has a history of bipolar disorder or suicide attempts. This medicine may cause the following problems: Serotonin syndrome (when taken with certain medicines) Low sodium levels (more common in elderly patients and those who take diuretics or become dehydrated) Tell your doctor if you are sensitive to latex, because the oral liquid comes with a latex rubber dropper. This medicine may make you dizzy or drowsy. Do not drive or do anything that could be dangerousuntil you know how this medicine affects you. Do not stop using this medicine suddenly. Your doctor will need to slowly decrease your dose before you stop it completely. Your doctor will check your progress and the effects of this medicine at regular visits. Keep all appointments. Keep all medicine out of the reach of children. Never share your medicine with anyone. Possible Side Effects While Using This Medicine: Call your doctor right away if you notice any of these side effects: Allergic reaction: Itching or hives, swelling in your face or hands, swelling or tingling in your mouth or throat, chest tightness, trouble breathing Anxiety, restlessness, fast heartbeat, fever, sweating, muscle spasms, twitching, nausea, vomiting, diarrhea, seeing or hearing things that are not there Blistering, peeling, or red skin rash Confusion, weakness, and muscle twitching Eye pain, vision changes, seeing halos around lights Feeling more excited or energetic than usual Thoughts of hurting yourself or others, unusual behavior Unusual bleeding or bruising If you notice these less serious side effects, talk with your doctor: Dry mouth Loss of appetite, weight loss Mild diarrhea, constipation, nausea, vomiting Sexual problems Sleepiness, or trouble sleeping If you notice other side effects that you think are caused by this medicine, tell your doctor. Call your doctor for medical advice about side effects. You may report side effects to FDA at 4-870-GCG-2729 2015 [employer] Information is for End User's use only and may not be sold, redistributed or otherwise used for commercial purposes. The above information is an dietary aide only. It is not intended as medical advice for individual conditions or treatments. Talk to your doctor, nurse or pharmacist before following any medical regimen to see if it is safe and effective for you. Author: Julisa Martinez MD 04/15/2019 16:13 documented in this encounter Plan of Treatment Date Type Specialty Care Team Description 05/19/2019 Office Visit [place] [address] [place] [address] [phone] Health Maintenance Due Date Last Done Comments [...] Type Problems Progress Depression Depression 20 No claire Martinez (PHQ-9) (09/03/2018 Julisa Blanca, total score < [...] TASHA (generalized anxiety disorder) Generalized anxiety disorder documented in this encounter Insurance Payer Benefit Plan / Subscriber ID Effective Dates Phone Address Type Group [employer] xxxxxxxxxxxx 2017-Present [employer] Guarantor Name Account Type Relation to Date of Phone Billing Patient Address Nisa Moore Thien Personal/Family 1985 [address] [facility] (Home) [address] [place], [place] (Work) [id number] documented as of this encounter
[2019-06-07 11:45] VITALS: BP 124/74
--- NOTE | 2019-06-07 12:25 | UC ---
Ear Complaint HPI - HPI Summary HPI Summary: Pt presents with c/o left ear pain X 1 night. Pt states she has URI like symptoms of nasal congestion, cough and ST. - History of Current Complaint Chief Complaint: UCEar Stated Complaint: LEFT EAR PAIN Time Seen by Provider: 06/07/19 12:17 Hx Obtained From: Patient Hx Last Menstrual Period: 05/22/19 ?: No Onset/Duration: Sudden Onset, Lasting Days, Still Present Severity Initially: Moderate Severity Currently: Moderate Pain Intensity: 8 Associated Signs/Symptoms: Positive: URI Symptoms - Allergies/Home Medications Allergies/Adverse Reactions: Allergies Allergy/AdvReac Type Severity Reaction Status Date / Time No Known Allergies Allergy Verified 06/07/19 11:45 Home Medications: Home Medications Methylphenidate ER TAB* [Concerta ER TAB*] 36 mg PO DAILY 06/07/19 [History Confirmed 06/07/19] Norethindrone AC-Eth Estradiol [Norethind-Eth Estrad 1-0.02 mg] 1 tab PO DAILY 06/07/19 [History Confirmed 06/07/19] Sertraline HCl [Zoloft] 75 mg PO DAILY 06/07/19 [History Confirmed 06/07/19] PMH/Surg Hx/FS Hx/Imm Hx Previously Healthy: Yes Other History Of: Negative For: HIV, Hepatitis B, Hepatitis C, Anticoagulant Therapy - Surgical History Surgical History: Yes Surgery Procedure, Year, and Place: ear tubes - Family History Known Family History: Positive: Diabetes Negative: Cardiac Disease, Hypertension, Renal Disease - Social History Occupation: Employed Full-time Lives: With Family Alcohol Use: Occasionally Substance Use Type: None Smoking Status (MU): Former Smoker Type: Cigarettes Amount Used/How Often: 1 ppd Length of Time of Smoking/Using Tobacco: started at age 15 Have You Smoked in the Last Year: Yes Household Exposure Type: Cigarettes - Immunization History Most Recent Influenza Vaccination: FALL 2013 Review of Systems All Other Systems Reviewed And Are Negative: Yes Constitutional: Positive: Negative Skin: Positive: Negative Eyes: Positive: Negative ENT: Positive: Sore Throat, Ear Ache - left, Sinus Congestion Respiratory: Positive: Cough Cardiovascular: Positive: Negative Gastrointestinal: Positive: Negative Genitourinary: Positive: Negative Motor: Positive: Negative Neurovascular: Positive: Negative Musculoskeletal: Positive: Negative Neurological: Positive: Negative Psychological: Positive: Negative Is Patient Immunocompromised?: No Physical Exam Triage Information Reviewed: Yes Appearance: Pain Distress Vital Signs: Initial Vital Signs Temp 99.0 F 06/07/19 11:40 Pulse 78 06/07/19 11:40 Resp 16 06/07/19 11:40 BP 124/74 06/07/19 11:40 Pulse Ox 100 06/07/19 11:40 Vital Signs Reviewed: Yes Eye Exam: Normal ENT: Positive: Nasal congestion, TM bulging - left Dental Exam: Normal Neck exam: Normal Respiratory Exam: Normal Cardiovascular Exam: Normal Musculoskeletal Exam: Normal Neurological Exam: Normal Psychological Exam: Normal Skin Exam: Normal Ear Complaint Course/Dx - Differential Dx/Diagnosis Differential Diagnosis/HQI/PQRI: Otitis Externa, Otitis Media, URI Provider Diagnosis: Acute effusion of left ear Discharge ED - Sign-Out/Discharge Documenting (check all that apply): Patient Departure All imaging exams completed and their final reports reviewed: No Studies - Discharge Plan Condition: Stable Disposition: HOME Prescriptions: Pseudoephedrine TAB* [Sudafed TAB*] 60 mg PO Q12H #14 tab Patient Education Materials: Earache (ED), Serous Otitis Media (ED) Referrals: Julisa Martinez MD [Primary Care Provider] - If Needed - Billing Disposition and Condition Condition: STABLE Disposition: Home
== END 2019-06-07 12:32 | disposition home or self-care (01) ==
LOC: UCCORT 10:55
DX: H93.8X2 Other specified disorders of left ear (principal); J02.9 Acute pharyngitis, unspecified; R09.89 Other specified symptoms and signs involving the circulatory and respiratory systems; Z87.891 Personal history of nicotine dependence
CPT/HCPCS: 99212; G0463